=== PATIENT | male | born 1965 | race Caucasian/White ===

== ENCOUNTER 2023-12-20 08:32 | Outpatient (CLI) | payer OTHER, SELFPAY ==
--- NOTE | ~2023-12-20 | MR_ITS ---
MRI of the lumbar spine Clinical History: Back pain Technique: Axial T2-weighted images, and sagittal T1-weighted, T2-weighted, and STIR images were acqu ired. Following intravenous administration of axial and sagittal cc MultiHance gadolinium, T1-weighte d fat-sat imaging was performed in the 20 planes. Findings: Patient is status post posterior and interbody fusion from L5 to S1, with bilateral rods an d transpedicular screws, and interbody fusion device present. L5 laminectomy defects are present. No suspicious bone marrow signal abnormality seen. No fracture or subluxation seen. At L1-L2, L2-L3, L3-L4, there is no significant disc bulge or herniation. There mild to moderate face t joint degenerative changes at these levels, worst at L3-L4. No spinal canal stenosis or neural fora willi narrowing at these levels. At L4-L5, there is minimal disc bulge with severe facet arthropathy. No central canal stenosis. There is mild left neural foraminal narrowing. Right neural foramen preserved. At L5-S1, there is no disc bulge or herniation. No spinal canal stenosis. Neural foramina appear pres erved. Paravertebral soft tissues are unremarkable, aside from expected postoperative change. No abnormal postcontrast enhancement identified. Impression: Posterior and interbody fusion changes from L5 to S1, as detailed above. Minimal degenerative change otherwise, as above. Reviewed, dictated and finalized at [facility]. Impression: Posterior and interbody fusion changes from L5 to S1, as detailed above. Minimal degenerative change otherwise, as above.
== END 2023-12-20 08:33 ==
LOC: MICIMG 08:35
PROVIDERS: PCP Registered Nurse; Visit Provider Registered Nurse
DX: M54.9 Dorsalgia, unspecified (principal); Z98.1 Arthrodesis status
CPT/HCPCS: 72158; A9577